=== PATIENT | female | born 1990 | race Caucasian/White ===

== ENCOUNTER 2019-05-19 14:43 | Emergency (ER) | payer SELFPAY ==
[~2019-05-19] VITALS: Ht 157.5 cm; Wt 54.4 kg
[2019-05-19 21:04] VITALS: BP 110/60
== END 2019-05-19 21:06 | disposition home or self-care (01) ==
LOC: ER 14:43
DX: J10.1 Influenza due to other identified influenza virus with other respiratory manifestations (principal); R50.81 Fever presenting with conditions classified elsewhere
CPT/HCPCS: 99283